=== PATIENT | male | born 1960 | race American Indian/Alaskan Native ===

== ENCOUNTER 2016-09-18 19:46 | Emergency (ER) | payer BC ==
[2016-09-18] MEDS ORDERED: DUONEB *Not for PRN Use IH ONE ×2 (20:05)
[2016-09-18] MEDS ORDERED: DELTASONE PO ONE (21:50)
[2016-09-18] MEDS ORDERED: ZITHROMAX PO ONE (21:50)
--- NOTE | 2016-09-18 21:51 | Emergency Department Report ---
ED Asthma HPI - General Chief Complaint: Adult Asthma Stated Complaint: SHAUNA Time Seen by Provider: 09/18/16 21:41 Source: patient Mode of arrival: Wheelchair Limitations: No Limitations - History of Present Illness MD Complaint: wheezing Onset/Timin -: days(s) Asthma History: adult onset, other (adult dx ) Severity: moderate Context: medication non-compliance Associated Symptoms: productive cough Treatments Prior to Arrival: inhaled bronchodilator, inhaled steroid - Related Data Current Asthma Therapy: inhaled bronchodilator, inhaled steroid Previous Rx's Medication Instructions Recorded Last Taken Type Azithromycin [Zithromax TAB] 250 mg PO QDAY #4 tablet 09/18/16 Unknown Rx Cetirizine HCl [ZyrTEC] 10 mg PO DAILY #30 tab.chew 09/18/16 Unknown Rx predniSONE [Deltasone] 40 mg PO QDAY #10 tab 09/18/16 Unknown Rx Allergies Allergy/AdvReac Type Severity Reaction Status Date / Time Penicillins Allergy Shortness Verified 09/18/16 19:56 of Breath ED Review of Systems ROS: Stated complaint: SHAUNA Other details as noted in HPI Constitutional: denies: chills, fever Eyes: denies: eye pain, eye discharge, vision change ENT: denies: ear pain, throat pain Respiratory: shortness of breath, wheezing Cardiovascular: denies: chest pain, palpitations, orthopnea, edema, syncope, paroxysmal nocturnal dyspnea Endocrine: no symptoms reported Gastrointestinal: denies: abdominal pain, nausea, diarrhea Genitourinary: denies: urgency, dysuria Musculoskeletal: denies: back pain, joint swelling, arthralgia Skin: denies: rash, lesions Neurological: denies: headache, weakness, paresthesias Psychiatric: denies: anxiety, depression Hematological/Lymphatic: denies: easy bleeding, easy bruising ED Past Medical Hx - Past Medical History Previous Medical History?: Yes Hx Hypertension: Yes Hx Asthma: Yes - Surgical History Past Surgical History?: Yes Additional Surgical History: DEVIATED SEPTUM / TONSILECTOMY - Social History Smoking Status: Current Some Day Smoker Substance Use Type: Alcohol - Medications Home Medications: Home Medications Medication Instructions Recorded Confirmed Last Taken Type Azithromycin [Zithromax TAB] 250 mg PO QDAY #4 tablet 09/18/16 Unknown Rx Cetirizine HCl [ZyrTEC] 10 mg PO DAILY #30 tab.chew 09/18/16 Unknown Rx predniSONE [Deltasone] 40 mg PO QDAY #10 tab 09/18/16 Unknown Rx ED Physical Exam - General Limitations: No Limitations General appearance: alert, in no apparent distress - Head Head exam: Present: atraumatic, normocephalic - Eye Eye exam: Present: normal appearance - ENT ENT exam: Present: mucous membranes moist, TM's normal bilaterally - Neck Neck exam: Present: normal inspection, full ROM. Absent: tenderness, lymphadenopathy, thyromegaly - Respiratory Respiratory exam: Present: normal lung sounds bilaterally, wheezes. Absent: respiratory distress, rales, rhonchi, stridor, chest wall tenderness, accessory muscle use, decreased breath sounds, prolonged expiratory - Cardiovascular Cardiovascular Exam: Present: regular rate, normal rhythm, normal heart sounds. Absent: systolic murmur, diastolic murmur, rubs, gallop - GI/Abdominal GI/Abdominal exam: Present: soft, normal bowel sounds. Absent: distended, tenderness, guarding, rebound, rigid, mass, bruit - Rectal Rectal exam: Present: deferred - Extremities Exam Extremities exam: Present: normal inspection - Back Exam Back exam: Present: normal inspection - Neurological Exam Neurological exam: Present: alert, oriented X3, CN II-XII intact, normal gait, reflexes normal. Absent: motor sensory deficit - Psychiatric Psychiatric exam: Present: normal affect, normal mood - Skin Skin exam: Present: warm, dry, intact, normal color. Absent: rash ED Course Vital Signs 09/18/16 09/18/16 19:57 20:09 Temperature 98.9 F Pulse Rate 104 H Pulse Rate [ 96 H Anterior Bilateral Throughout] Respiratory 24 Rate Respiratory 17 Rate [Anterior Bilateral Throughout] Blood Pressure 141/97 O2 Sat by Pulse 96 Oximetry ED Medical Decision Making - Radiology Data Radiology results: image reviewed no infiltrates no opacities - Medical Decision Making pt is a 55 y/o aam with hx of asthma who present for exacerbation of same after eating spicey jamacain food this evening symptoms included cough wheezing sob, symptoms have resolve wit duoneb given in ed, pt denies sob on cp no wheezing at this time there is no fever, repeat vital signs noted 115/74, hr 94, o2sat: 96 r/s resp 17, will dc to home with zpack, prednisone, pt has albuterol and advair at home, request zyrtec daily will rx same pt will follow up with primary care doctor in 3 days, pt verbalized agreement and understanding with discharge plan. Critical care attestation.: If time is entered above; I have spent that time in minutes in the direct care of this critically ill patient, excluding procedure time. ED Disposition Clinical Impression: Asthma exacerbation Disposition: DC-01 TO HOME OR SELFCARE Is pt being admited?: No Does the pt Need Aspirin: No Condition: Good Additional Instructions: continue albuterol inhaler, and advair as rx, follow up with primary care doctor Dr. Harrell [phone] Prescriptions: Azithromycin [Zithromax TAB] 250 mg PO QDAY #4 tablet Cetirizine HCl [ZyrTEC] 10 mg PO DAILY #30 tab.chew predniSONE [Deltasone] 40 mg PO QDAY #10 tab Forms: Work/School Release Form(ED) Time of Disposition: 22:13
[2016-09-18 22:02] VITALS: BP 115/77
--- NOTE | 2016-09-19 08:25 | XRay Report ---
CHEST 2 VIEWS INDICATION: Shortness of breath. COMPARISON: None similar. FINDINGS: PA and lateral chest radiographs demonstrate normal cardiomediastinal silhouette. Bibasilar horizontal atelectasis or scarring, left greater than right. Slight right mid lung scarring/prominent markings as well. No pleural effusions or CHF. Slight mid thoracic spine degenerative spurring. CONCLUSION: Findings, as above. Please also correlate clinically and with prior relevant imaging, if available. Thank you for the opportunity to participate in this patient's care.
== END 2016-09-18 22:15 | disposition home or self-care (01) ==
LOC: ED 19:46
DX: J45.901 Unspecified asthma with (acute) exacerbation (principal); I10 Essential (primary) hypertension; F17.200 Nicotine dependence, unspecified, uncomplicated
CPT/HCPCS: 71020; 93005; 93010; 99283; J7512

== ENCOUNTER 2016-10-14 19:18 | Emergency (ER) | payer BC ==
[2016-10-14 19:42] VITALS: BP 132/98
[2016-10-14] MEDS ORDERED: PROVENTIL IH ONE (19:57)
[2016-10-14 20:17] LABS: Basophils % (Auto) 0.5 % (0.0-1.8); Eosinophils % (Auto) 1.4 % (0.0-4.3); Hematocrit 40.7 % (35.5-45.6); Hemoglobin 14.1 gm/dl (11.8-15.2); Mean Corpuscular HGB Conc 35 % (32-34); Mean Corpuscular Hemoglobin 32 pg (28-32); Mean Corpuscular Volume 92 fl (84-94); Platelet Count 340 K/mm3 (140-440); Red Blood Count 4.41 M/mm3 (3.65-5.03); Red Cell Distribution Width 14.2 % (13.2-15.2); White Blood Count 6.5 K/mm3 (4.5-11.0)
[2016-10-14 20:36] LABS: Alanine Aminotransferase 17 units/L (7-56); Albumin 4.1 g/dL (3.9-5); Albumin/Globulin Ratio 1.2 %; Alkaline Phosphatase 86 units/L (35-129); Anion Gap 18 mmol/L; BUN/Creatinine Ratio 18.75; Blood Urea Nitrogen 15 mg/dL (9-20); Calcium 9.3 mg/dL (8.4-10.2); Carbon Dioxide 23 mmol/L (22-30); Chloride 101.4 mmol/L (98-107); Glucose 112 mg/dL (75-100); Lipase 35 units/L (13-60); Sodium 138 mmol/L (137-145); Total Protein 7.4 g/dL (6.3-8.2)
[2016-10-14 22:33] LABS: Bilirubin,Urine NEG (Negative); Blood,Urine NEG (Negative); Ketones,Urine NEG (Negative); Leukocyte Esterase,Urine TR (Negative); Mucus,Urine 2+ /HPF; Nitrite,Urine NEG (Negative); Protein,Urine <15 mg/dL mg/dL (Negative)
--- NOTE | 2016-10-15 08:21 | XRay Report ---
CHEST 2 VIEWS INDICATION: Shortness of breath. Chest pain x 1 day, upper abdominal pain x 3 days. History of asthma, high blood-pressure. COMPARISON: 09/18/2016 FINDINGS: PA and lateral chest radiographs again demonstrate normal cardiomediastinal silhouette. Slight improved horizontal bibasilar atelectasis. Clear remainder lungs. No pleural effusions or CHF. Mild thoracic spine degenerative changes. CONCLUSION: Improving bibasilar atelectasis, as described. Thank you for the opportunity to participate in this patient's care.
--- NOTE | 2016-10-23 01:39 | ED Elopement Review ---
ED Pt Elopement review - Results review Lab results: Laboratory Tests 10/14/16 10/14/16 10/14/16 19:43 22:00 Unknown WBC 6.5 RBC 4.41 Hgb 14.1 Hct 40.7 MCV 92 MCH 32 MCHC 35 H RDW 14.2 Plt Count 340 Lymph % (Auto) 30.0 [place] % (Auto) 7.4 H Eos % (Auto) 1.4 Baso % (Auto) 0.5 Lymph # 1.9 [place]gg # 0.5 Eos # 0.1 Baso # 0.0 Seg Neutrophils % 60.7 Seg Neutrophils # 3.9 Sodium 138 Potassium 4.0 Chloride 101.4 Carbon Dioxide 23 Anion Gap 18 BUN 15 Creatinine 0.8 Estimated GFR > 60 BUN/Creatinine Ratio 18.75 Glucose 112 H Calcium 9.3 Total Bilirubin 0.50 AST 16 ALT 17 Alkaline Phosphatase 86 Troponin T < 0.010 Total Protein 7.4 Albumin 4.1 Albumin/Globulin Ratio 1.2 Lipase 35 Urine Color Yellow Urine Turbidity Clear Urine pH 7.0 Ur Specific [place] 1.028 Urine Protein <15 mg/dl Urine Glucose (UA) Neg Urine Ketones Neg Urine Blood Neg Urine Nitrite Neg Urine Bilirubin Neg Urine Urobilinogen 4.0 Ur Leukocyte Esterase Tr Urine WBC (Auto) 9.0 H Urine RBC (Auto) 7.0 U Epithel Cells (Auto) 1.0 Urine Mucus 2+ - Call Back decision Pt Call Back Decision: Pt to F/U with PMD
== END 2016-10-15 03:15 | disposition left against medical advice (07) ==
LOC: ED 19:18
DX: R06.02 Shortness of breath (principal); R10.9 Unspecified abdominal pain; Z53.21 Procedure and treatment not carried out due to patient leaving prior to being seen by health care provider
CPT/HCPCS: 36415; 71020; 80048; 80053; 81001; 83690; 84484; 85025; 94640

== ENCOUNTER 2016-11-11 12:28 | Emergency (ER) | payer BC | END 2016-11-11 14:00 | disposition left against medical advice (07) | LOC: ED 12:28 | DX: R06.02 Shortness of breath (principal); Z53.21 Procedure and treatment not carried out due to patient leaving prior to being seen by health care provider ==